=== PATIENT | female | born 1970 | race African-American/Black ===

== ENCOUNTER 2021-04-26 20:07 | Inpatient (IN) | payer OTHER ==
[2021-04-26 21:33] LABS: ALT (SGPT) 139 U/L (8-55); AST (SGOT) 344 U/L (5-34); Albumin 4.3 g/dL (3.5-5.0); Alkaline Phosphatase 241 U/L (40-110); Anion Gap 15 mmol/L (10-20); BUN (Urea Nitrogen) 12 mg/dL (9.8-20.1); Bilirubin, Total 1.1 mg/dL (0.2-1.2); Calc. Creatinine Clearance 0 mL/min (70-130); Calcium 8.6 mg/dL (7.8-10.44); Carbon Dioxide 22 mmol/L (22-29); Chloride 106 mmol/L (98-107); Globulin 3.3 g/dL (2.4-3.5); Glucose 104 mg/dL (70-105); Lipase 113 U/L (8-78); Potassium 4.1 mmol/L (3.5-5.1); Protein, Total 7.6 g/dL (6.0-8.3); Sodium 139 mmol/L (136-145)
[2021-04-26 21:34] LABS: #Monocytes 0.7 10x3/uL (0.0-1.1); #Neutrophils 9.4 10x3/uL (1.5-8.4); %Basophils 0.1 % (0.0-2.0); %Lymphocytes 11.4 % (18.0-47.0); %Monocytes 6.2 % (0.0-10.0); %Neutrophils 81.9 % (40.0-75.0); Hemoglobin 14.3 g/dL (12.0-15.5); Mean Corpuscular HGB CONC 33.1 g/dL (32.0-36.0); Mean Corpuscular Hemoglobin 27.5 pg (27.0-33.0); Mean Corpuscular Volume 83.1 fl (81.6-98.3); Mean Platelet Volume 9.8 fl (7.4-10.4); Platelet Count 350 10x3/uL (150-450); RBC Distribution Width 14.5 % (11.5-14.5); White Blood Cell (WBC) Count 11.5 10x3/uL (3.5-10.5)
[2021-04-26 21:40] LABS: Bilirubin Neg (Negative); Blood, Urine Negative (Negative); Glucose, Urine (Dipstick) Normal (Negative); Ketone, Urine Negative (Negative); Leukocyte Negative (Negative); Nitrite Negative (Negative); Protein, Urine (Dipstick) 15 mg/dl (Neg-Trace); Specific Gravity, Urine 1.015 (1.002-1.036)
[2021-04-26 21:41] LABS: Clarity Clear (Clear)
[2021-04-26] MEDS ORDERED: Ondansetron PF 4 MG/2 ML Vial ONE (22:13)
[2021-04-26] MEDS ORDERED: Morphine 4 MG/ML VIAL ONE (22:13)
[2021-04-26 23:05] LABS: ALT (SGPT) 182 U/L (8-55); AST (SGOT) 420 U/L (5-34); Albumin 4.1 g/dL (3.5-5.0); Alkaline Phosphatase 258 U/L (40-110); Anion Gap 15 mmol/L (10-20); BUN (Urea Nitrogen) 11 mg/dL (9.8-20.1); Bilirubin, Total 0.9 mg/dL (0.2-1.2); Calc. Creatinine Clearance 0 mL/min (70-130); Calcium 8.9 mg/dL (7.8-10.44); Carbon Dioxide 23 mmol/L (22-29); Chloride 105 mmol/L (98-107); Globulin 3.5 g/dL (2.4-3.5); Glucose 100 mg/dL (70-105); Potassium 3.5 mmol/L (3.5-5.1); Protein, Total 7.6 g/dL (6.0-8.3); Sodium 139 mmol/L (136-145)
[2021-04-27] MEDS ORDERED: Ondansetron PF 4 MG/2 ML Vial IVP PRN (02:06)
[2021-04-27] MEDS ORDERED: Zolpidem Tartrate 5 MG TAB PO PRN (02:06)
[2021-04-27] MEDS ORDERED: Calcium Carbonate 500 MG ChewTAB PO PRN (02:06)
[2021-04-27] MEDS ORDERED: Promethazine HCl 12.5 MG in Sodium Chloride 0.9% 50 ML IVPB PRN (02:11)
[2021-04-27] MEDS ORDERED: Morphine 4 MG/ML VIAL SLOW IVP PRN (02:12)
[2021-04-27] MEDS ORDERED: Ketorolac Tromethamine 30 MG/ML VIAL IVP PRN (02:30)
[2021-04-27] MEDS ORDERED: Morphine 4 MG/ML VIAL ONE (02:30)
[2021-04-27] MEDS ORDERED: Lactated Ringer's 500 ML IV SCH (02:30)
[2021-04-27] MEDS ORDERED: Piperacillin/Tazobactam 3.375 GM in Sodium Chloride 0.9% 100 ML IVPB SCH (02:30)
[2021-04-27] MEDS ORDERED: Piperacillin/Tazobactam 3.375 GM VIAL ONE (03:40)
[2021-04-27] MEDS ORDERED: Promethazine HCl 25 MG/ML VIAL ONE (03:41)
[2021-04-27] MEDS: Lactated Ringer's 1,000 ML IV SCH ×3 (04:30→21:32)
[2021-04-27 05:28] LABS: ALT (SGPT) 329 U/L (8-55); AST (SGOT) 647 U/L (5-34); Acetaminophen Less than 6.0 mcg/mL (10.0-30.0); Albumin 4.2 g/dL (3.5-5.0); Alkaline Phosphatase 324 U/L (40-110); Anion Gap 12 mmol/L (10-20); BUN (Urea Nitrogen) 9 mg/dL (9.8-20.1); Bilirubin, Total 1.4 mg/dL (0.2-1.2); Calc. Creatinine Clearance 0 mL/min (70-130); Calcium 8.7 mg/dL (7.8-10.44); Carbon Dioxide 23 mmol/L (22-29); Cardiac Risk 2.8 (Less than 4.5); Chloride 107 mmol/L (98-107); Cholesterol 160 mg/dl (< 200 Desired); Globulin 3.6 g/dL (2.4-3.5); Glucose 97 mg/dL (70-105); HDL Cholesterol 57 mg/dL (>60 Neg Risk); LDL Cholesterol, Calculated 93 mg/dL; Lipase 38 U/L (8-78); Potassium 3.2 mmol/L (3.5-5.1); Protein, Total 7.8 g/dL (6.0-8.3); Sodium 139 mmol/L (136-145); Triglycerides 51 mg/dL (Less than 150)
[2021-04-27 05:48] LABS: Thyroid Stimulating Hormone 0.3116 uIU/mL (0.35-4.94)
[2021-04-27 05:50] LABS: PTT 28.8 sec (22.0-33.0); Prothrombin Time 11.5 sec (9.5-12.1)
[2021-04-27 06:05] LABS: #Monocytes 0.6 10x3/uL (0.0-1.1); #Neutrophils 7.8 10x3/uL (1.5-8.4); %Basophils 0.2 % (0.0-2.0); %Eosinophils 0.1 % (0.0-6.0); %Lymphocytes 10.3 % (18.0-47.0); %Monocytes 6.3 % (0.0-10.0); %Neutrophils 82.7 % (40.0-75.0); Mean Corpuscular HGB CONC 33.1 g/dL (32.0-36.0); Mean Corpuscular Hemoglobin 27.9 pg (27.0-33.0); Mean Corpuscular Volume 84.3 fl (81.6-98.3); Mean Platelet Volume 10.5 fl (7.4-10.4); Platelet Count 349 10x3/uL (150-450); RBC Distribution Width 14.6 % (11.5-14.5); White Blood Cell (WBC) Count 9.4 10x3/uL (3.5-10.5)
[2021-04-27] MEDS ORDERED: Losartan 25 MG TAB ONE (07:45)
[2021-04-27 07:46] LABS: MONO NEGATIVE CONTROL ZONE White (Negative) (White); MONO POSITIVE CONTROL Pink Line (Positive) (PINK/RED); Mononucleosis NEGATIVE (NEGATIVE)
[2021-04-27] MEDS ORDERED: Enoxaparin Sodium 40 MG/0.4 ML SYRINGE ONE (07:50)
[2021-04-27] MEDS ORDERED: Famotidine/PF 20 mg/2ml Vial ONE (07:50)
[2021-04-27] MEDS: Topiramate 25 MG TAB PO SCH (08:24)
[2021-04-27] MEDS: Enoxaparin Sodium 40 MG/0.4 ML SYRINGE SC SCH (08:24)
[2021-04-27] MEDS: Losartan 25 MG TAB PO SCH (08:24)
[2021-04-27] MEDS: Famotidine/PF 20 mg/2ml Vial SLOW IVP SCH ×2 (08:24→21:19)
[2021-04-27 09:08] LABS: Amphetamine Not Detected (NotDetected); Barbiturates Screen Not Detected (NotDetected); Benzodiazepine Screen Detected (NotDetected); Cocaine Metabolite Screen Not Detected (NotDetected); Methadone Not Detected (NotDetected); Methamphetamine Not Detected (NotDetected); Opiate Screen Detected (NotDetected); Oxycodone Screen Not Detected (NotDetected); Phencyclidine (PCP) Not Detected (NotDetected); THC/Cannabinoid Screen Not Detected (NotDetected); Tricyclic Screen Not Detected (NotDetected)
[2021-04-27 10:04] LABS: SARS-CoV-2 NAA Rapid Test Not Detected (NotDetected)
[2021-04-27 13:50] LABS: Gamma GT (GGT) 353 U/L (9-36)
[2021-04-27 14:15] LABS: HBCM Index 0.07 S/CO (0-0.79); HBSAg Index 0.25 S/CO (0-0.99); Hep A IgM AB Non-Reactive (NonReactive); Hep A IgM S/CO 0.16 S/CO (0-0.79); Hep B Surf Ag Non-Reactive S/CO (NonReactive); Hep C IgG Ab Non-Reactive (NonReactive); Hep C Index 0.11 S/CO (0-0.79); Hepatitis B Core IgM Abs Non-Reactive (NonReactive)
[2021-04-27] MEDS: Morphine 4 MG/ML VIAL SLOW IVP PRN (21:18)
[2021-04-27 23:22] VITALS: BMI 58.1
[2021-04-27] MEDS ORDERED: Prevnar 13-Val Conj/PF 0.5 ML SYRINGE IM ONE (23:45)
[2021-04-28] MEDS: Lactated Ringer's 1,000 ML IV SCH ×2 (03:36→16:17)
[2021-04-28 08:15] LABS: EBV VCA IgM <36.0 U/mL (0.0-35.9); Nuclear AG IgG (EBNA) AB >600.0 U/mL (0.0-17.9)
[2021-04-28] MEDS: Enoxaparin Sodium 40 MG/0.4 ML SYRINGE SC SCH (09:08)
[2021-04-28] MEDS: Losartan 25 MG TAB PO SCH (09:08)
[2021-04-28] MEDS: Topiramate 25 MG TAB PO SCH (09:08)
[2021-04-28] MEDS: Famotidine/PF 20 mg/2ml Vial SLOW IVP SCH ×2 (09:08→21:16)
[2021-04-28] MEDS ORDERED: Piperacillin/Tazobactam 3.375 GM in Sodium Chloride 0.9% 100 ML IVPB SCH ×2 (11:45→15:45)
[2021-04-28 12:13] LABS: #Eosinphils 0.2 10x3/uL (0.0-0.5); #Monocytes 0.8 10x3/uL (0.0-1.1); #Neutrophils 4.3 10x3/uL (1.5-8.4); %Basophils 0.4 % (0.0-2.0); %Eosinophils 2.1 % (0.0-6.0); %Lymphocytes 32.2 % (18.0-47.0); %Monocytes 9.9 % (0.0-10.0); %Neutrophils 55.3 % (40.0-75.0); Hemoglobin 10.8 g/dL (12.0-15.5); Mean Corpuscular HGB CONC 33.2 g/dL (32.0-36.0); Mean Corpuscular Hemoglobin 27.6 pg (27.0-33.0); Mean Corpuscular Volume 83.1 fl (81.6-98.3); Mean Platelet Volume 9.7 fl (7.4-10.4); Platelet Count 294 10x3/uL (150-450); RBC Distribution Width 14.5 % (11.5-14.5); Red Blood Cell (RBC) Count 3.91 10x6/uL (3.90-5.03); White Blood Cell (WBC) Count 7.7 10x3/uL (3.5-10.5)
[2021-04-28 12:23] LABS: ALT (SGPT) 228 U/L (8-55); AST (SGOT) 173 U/L (5-34); Albumin 3.6 g/dL (3.5-5.0); Alkaline Phosphatase 264 U/L (40-110); Anion Gap 11 mmol/L (10-20); BUN (Urea Nitrogen) 7 mg/dL (9.8-20.1); Bilirubin, Direct 0.2 mg/dL (0.1-0.3); Bilirubin, Total 0.4 mg/dL (0.2-1.2); Calc. Creatinine Clearance 209 mL/min (70-130); Calcium 8.3 mg/dL (7.8-10.44); Carbon Dioxide 25 mmol/L (22-29); Chloride 109 mmol/L (98-107); Globulin 2.6 g/dL (2.4-3.5); Glucose 92 mg/dL (70-105); Lipase 12 U/L (8-78); Potassium 3.5 mmol/L (3.5-5.1); Protein, Total 6.2 g/dL (6.0-8.3); Sodium 141 mmol/L (136-145)
[2021-04-28] MEDS: Morphine 4 MG/ML VIAL SLOW IVP PRN (21:23)
[2021-04-29 07:43] LABS: #Eosinphils 0.2 10x3/uL (0.0-0.5); #Monocytes 0.5 10x3/uL (0.0-1.1); #Neutrophils 4.6 10x3/uL (1.5-8.4); %Basophils 0.3 % (0.0-2.0); %Eosinophils 2.4 % (0.0-6.0); %Lymphocytes 33.5 % (18.0-47.0); %Monocytes 6.4 % (0.0-10.0); %Neutrophils 57.3 % (40.0-75.0); Hemoglobin 10.7 g/dL (12.0-15.5); Mean Corpuscular HGB CONC 32.8 g/dL (32.0-36.0); Mean Corpuscular Hemoglobin 27.2 pg (27.0-33.0); Mean Corpuscular Volume 82.7 fl (81.6-98.3); Mean Platelet Volume 9.8 fl (7.4-10.4); Platelet Count 309 10x3/uL (150-450); RBC Distribution Width 14.5 % (11.5-14.5); Red Blood Cell (RBC) Count 3.94 10x6/uL (3.90-5.03)
[2021-04-29 07:46] LABS: ALT (SGPT) 156 U/L (8-55); AST (SGOT) 80 U/L (5-34); Albumin 3.4 g/dL (3.5-5.0); Alkaline Phosphatase 208 U/L (40-110); Anion Gap 11 mmol/L (10-20); BUN (Urea Nitrogen) 7 mg/dL (9.8-20.1); Bilirubin, Total 0.3 mg/dL (0.2-1.2); Calc. Creatinine Clearance 221 mL/min (70-130); Calcium 8.5 mg/dL (7.8-10.44); Carbon Dioxide 24 mmol/L (22-29); Chloride 111 mmol/L (98-107); Globulin 2.8 g/dL (2.4-3.5); Glucose 88 mg/dL (70-105); Potassium 3.3 mmol/L (3.5-5.1); Protein, Total 6.2 g/dL (6.0-8.3); Sodium 143 mmol/L (136-145)
[2021-04-29] MEDS: Enoxaparin Sodium 40 MG/0.4 ML SYRINGE SC SCH (08:38)
[2021-04-29] MEDS: Topiramate 25 MG TAB PO SCH (08:39)
[2021-04-29] MEDS: Famotidine/PF 20 mg/2ml Vial SLOW IVP SCH (08:39)
[2021-04-29 09:32] VITALS: BP 111/65; TEMP 97.1
== END 2021-04-29 13:05 | disposition home or self-care (01) | DRG 442 ==
LOC: CSHERS 20:07 → CSHERHOLD 04-27 02:25 → CSHTELE 04-27 02:26
PROVIDERS: ADMIT Student in an Organized Health Care Education/Training Program; ATTEND Family Medicine
DX: K75.81 Nonalcoholic steatohepatitis (NASH) (principal); Z68.43 Body mass index [BMI] 50.0-59.9, adult; Z20.822 Contact with and (suspected) exposure to COVID-19; I10 Essential (primary) hypertension; E86.0 Dehydration; G25.0 Essential tremor; K21.9 Gastro-esophageal reflux disease without esophagitis; E66.01 Morbid (severe) obesity due to excess calories; K83.8 Other specified diseases of biliary tract; Z98.84 Bariatric surgery status; Z88.8 Allergy status to other drugs, medicaments and biological substances; Z90.49 Acquired absence of other specified parts of digestive tract; Z79.899 Other long term (current) drug therapy; Z90.710 Acquired absence of both cervix and uterus
CPT/HCPCS: 36415; 74177; 74181; 76705; 80053; 80061; 80074; 80143; 80306; 81003; 82247; 82977; 83605; 83690; 84145; 84439; 84443; 85025; 85610; 85730; 86308; 86664; 86665; 80307; J1650; J2270; J2405; J2543; J2550; J3490; J7120; S0028; U0002

== ENCOUNTER → 2021-12-23 | Emergency (ER) | payer BC ==
[~2021-12-23] MED LIST: Acetaminophen 325 MG TAB PO PRN; Calcium Carbonate 500 MG ChewTAB PO PRN; Enoxaparin Sodium 40 MG/0.4 ML SYRINGE SC SCH; Famotidine/PF 20 mg/2ml Vial SLOW IVP SCH; Fluticasone Propionate Nasal Spray 16 gm Bottle NASAL PRN; Guaifenesin DM 100-10/5 ML UDCUP PO PRN; HYDROcodone/Acetaminophen 5/325 mg Tablet PO PRN; Iopamidol 300 61% 100 ML VIAL FS ONE; Ketorolac Tromethamine 30 MG/ML VIAL ONE; Lactated Ringer's 1,000 ML IV SCH; Losartan Potassium 50 MG TAB PO SCH; Morphine 2 MG/ML VIAL SLOW IVP PRN; Morphine 4 MG/ML VIAL ONE; Ondansetron PF 4 MG/2 ML Vial IVP PRN; Ondansetron PF 4 MG/2 ML Vial ONE; Piperacillin/Tazobactam 3.375 GM in Sodium Chloride 0.9% 100 ML IVPB SCH; Piperacillin/Tazobactam 4.5 GM VIAL ONE; Senokot S 8.6-50 MG TAB PO PRN; Topiramate 100 MG TAB PO SCH; Zolpidem Tartrate 5 MG TAB PO PRN; traMADol HCl 50 MG TAB PO PRN
[2021-12-23 17:32] LABS: #Monocytes 0.7 10x3/uL (0.0-1.1); #Neutrophils 12.1 10x3/uL (1.5-8.4); %Basophils 0.1 % (0.0-2.0); %Eosinophils 0.3 % (0.0-6.0); %Monocytes 5.4 % (0.0-10.0); %Neutrophils 88.8 % (40.0-75.0); Hemoglobin 13.1 g/dL (12.0-15.5); Mean Corpuscular HGB CONC 34.2 g/dL (32.0-36.0); Mean Corpuscular Hemoglobin 27.6 pg (27.0-33.0); Mean Corpuscular Volume 80.8 fl (81.6-98.3); Platelet Count 265 10x3/uL (150-450); RBC Distribution Width 14.6 % (11.5-14.5); Red Blood Cell (RBC) Count 4.74 10x6/uL (3.90-5.03); White Blood Cell (WBC) Count 13.6 10x3/uL (3.5-10.5)
[2021-12-23 17:38] LABS: ALT (SGPT) 883 U/L (8-55); AST (SGOT) 1319 U/L (5-34); Albumin 4.3 g/dL (3.5-5.0); Alkaline Phosphatase 429 U/L (40-110); Anion Gap 14 mmol/L (10-20); BUN (Urea Nitrogen) 9 mg/dL (9.8-20.1); Bilirubin, Total 1.6 mg/dL (0.2-1.2); Calc. Creatinine Clearance 0 mL/min (70-130); Carbon Dioxide 25 mmol/L (22-29); Chloride 104 mmol/L (98-107); Estimated GFR 89; Globulin 3.9 g/dL (2.4-3.5); Glucose 88 mg/dL (70-105); Lipase 8 U/L (8-78); Potassium 3.8 mmol/L (3.5-5.1); Protein, Total 8.2 g/dL (6.0-8.3); Sodium 139 mmol/L (136-145)
[2021-12-23 19:22] LABS: Bilirubin Neg (Negative); Blood, Urine 10 (Negative); Clarity Clear (Clear); Glucose, Urine (Dipstick) Normal (Negative); Ketone, Urine 5 mg/dL (Negative); Leukocyte Negative (Negative); Nitrite Negative (Negative); Protein, Urine (Dipstick) Negative (Neg-Trace); Specific Gravity, Urine 1.005 (1.002-1.036)
[2021-12-23 19:29] LABS: Bacteria/HPF Rare-Few HPF (None Seen); RBC/HPF 0-3 HPF (0-3); Squamous Epithelial 0-3 HPF (0-3); WBC/HPF 0-3 HPF (0-3)
[2021-12-23 22:45] LABS: SARS-CoV-2 NAA Rapid Test Not Detected (NotDetected)
[2021-12-23 23:41] LABS: Acetaminophen Less than 10.0 mcg/mL (10.0-30.0)
[2021-12-24 13:08] LABS: HBSAg Index 0.27 S/CO (0-0.99); Hep A IgM AB Non-Reactive (NonReactive); Hep B Surf Ag Non-Reactive S/CO (NonReactive); Hep C IgG Ab Non-Reactive (NonReactive); Hep C Index 0.08 S/CO (0-0.79); Hepatitis B Core IgM Abs Non-Reactive (NonReactive)
== END | disposition short-term general hospital (02) ==
LOC: CSHERS 15:56
DX: K80.50 Calculus of bile duct without cholangitis or cholecystitis without obstruction (principal); R74.01 Elevation of levels of liver transaminase levels; Z20.822 Contact with and (suspected) exposure to COVID-19; I10 Essential (primary) hypertension
CPT/HCPCS: 36415; 74177; 80074; 80143; 81003; 81015; 83690; 87040; 96361; 96365; 96375; 80307; J1885; J2270; J2405; J2543; J7120; Q9967; U0002

== ENCOUNTER 2022-12-29 13:35 | Outpatient (CLI) | payer BC ==
[~2022-12-29 13:35] MED LIST changes: -Acetaminophen 325 MG TAB PO PRN; -Calcium Carbonate 500 MG ChewTAB PO PRN; -Enoxaparin Sodium 40 MG/0.4 ML SYRINGE SC SCH; -Famotidine/PF 20 mg/2ml Vial SLOW IVP SCH; -Fluticasone Propionate Nasal Spray 16 gm Bottle NASAL PRN; -Guaifenesin DM 100-10/5 ML UDCUP PO PRN; -HYDROcodone/Acetaminophen 5/325 mg Tablet PO PRN; -Iopamidol 300 61% 100 ML VIAL FS ONE; -Ketorolac Tromethamine 30 MG/ML VIAL ONE; -Lactated Ringer's 1,000 ML IV SCH; -Losartan Potassium 50 MG TAB PO SCH; +Magnevist 469MG/ML 20 ML VIAL ONE; -Morphine 2 MG/ML VIAL SLOW IVP PRN; -Morphine 4 MG/ML VIAL ONE; -Ondansetron PF 4 MG/2 ML Vial IVP PRN; -Ondansetron PF 4 MG/2 ML Vial ONE; -Piperacillin/Tazobactam 3.375 GM in Sodium Chloride 0.9% 100 ML IVPB SCH; -Piperacillin/Tazobactam 4.5 GM VIAL ONE; -Senokot S 8.6-50 MG TAB PO PRN; -Topiramate 100 MG TAB PO SCH; -Zolpidem Tartrate 5 MG TAB PO PRN; -traMADol HCl 50 MG TAB PO PRN
== END 2022-12-29 13:36 | disposition home or self-care (01) ==
LOC: CSHMRI 13:35
PROVIDERS: ATTEND Psychiatry & Neurology Neurology
DX: G37.9 Demyelinating disease of central nervous system, unspecified (principal); M47.812 Spondylosis without myelopathy or radiculopathy, cervical region
CPT/HCPCS: 72156